=== PATIENT | female | born 1970 | race Caucasian/White ===

== ENCOUNTER 2020-05-08 00:04 | Emergency (ER) | payer OTHER ==
[~2020-05-08] VITALS: Ht 154.9 cm; Wt 120.2 kg
[2020-05-08 00:27] VITALS: BP 141/51
[2020-05-08] MEDS ORDERED: KLONOPIN PO STA (00:34)
[2020-05-08] MEDS ORDERED: KLONOPIN ONE (00:36)
--- NOTE | 2020-05-08 00:37 | ER.PDOC ---
General Chief Complaint: Dyspnea/Respdistress Stated Complaint: CHEST CONGESTION Time seen by MD: 00:36 Source: patient Exam Limitations: no limitations History of Present Illness Initial Comments Chest congestion and difficulty breathing for Months. Severity: moderate Prior Episodes/Possible Cause: occasional episodes, chronic episodes Associated Symptoms: anxiety Allergies: Coded Allergies: Penicillins (Verified Allergy, Unknown, SWELLING, 05/08/20) Past Medical History Medical History: other Surgical History: tubal Family History Significant Family History: no pertinent family hx Social History Alcohol Use: rarely Drug Use: none Review of Systems Constitutional: no symptoms reported Respiratory: no symptoms reported Cardiovascular: no symptoms reported Gastrointestinal: no symptoms reported Genitourinary: no symptoms reported Psychiatric/Neurological: anxiety All Other Systems: Reviewed and Negative Physical Exam General Appearance: No Apparent Distress, Anxious Neck: Non-Tender, Full Range of Motion, Supple, Normal Inspection Respiratory: chest non-tender, lungs clear, normal breath sounds, no respiratory distress, no accessory muscle use Cardiovascular: Normal Peripheral Pulses, Regular Rate, Rhythm, No Edema, No Gallop, No JVD, No Murmur Gastrointestinal: Normal Bowel Sounds, No Organomegaly, No Pulsatile Mass, Non Tender, Soft Extremities: Normal Range of Motion, Non-Tender, Normal Inspection, No Pedal Edema, No Calf Tenderness, Normal Capillary Refill 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 NML as Tested, No Motor/Sensory Deficits, Alert, Normal Mood/Affect, Oriented x 3 Skin: Normal Color, Warm/Dry Lymphatic: No Adenopathy Results/Orders Results/Orders Orders - PAULINE BARBOSA MD Cbc With Auto Diff (05/08/20 00:34) Comprehensive Metabolic Panel (05/08/20 00:34) Creatine Kinase (05/08/20 00:34) Probnp B-Type [employer] M[employer] (05/08/20 00:34) Troponin I (05/08/20 00:34) D-Dimer (05/08/20 00:34) Xr Chest 1v (05/08/20 00:34) Ekg-Routine (05/08/20 00:34) Clonazepam (Klonopin) (05/08/20 00:34) Clonazepam (Klonopin) (05/08/20 00:36) Vital Signs Date Time Temp Pulse Resp B/P (MAP) Pulse Ox O2 Delivery O2 Flow Rate FiO2 05/08/20 00:27 98.0 85 20 05/08/20 00:27 98.0 85 20 141/51 (81) 100 Room Air 05/08/20 00:27 98.0 85 20 100 Administered Medications Medications (Trade) Dose Ordered Sig/Hattie Route PRN Reason Start Time Stop Time Status Last Admin Dose Admin Clonazepam (Klonopin) 0.5 mg STAT STAT PO 05/08/20 00:34 05/08/20 00:36 DC 05/08/20 00:43 0.5 MG Laboratory Tests Test 05/08/20 00:46 White Blood Count 7.2 10^3/uL (4.5-11.0) Red Blood Count 5.19 10^6/uL (4.00-5.20) Hemoglobin 13.2 g/dL (12.0-15.0) Hematocrit 39.2 % (36.0-46.0) Mean Corpuscular Volume 75.5 fL (78-100) L Mean Corpuscular Hemoglobin 25.4 pg (26-34) L Mean Corpuscular Hemoglobin Concent 33.7 g/dL (33-36.5) Red Cell Distribution Width 14.1 % (11.5-14.5) Platelet Count 293 10^3/uL (150-400) Mean Platelet Volume 10.9 fL (7.8-11.0) Neutrophils (%) (Auto) 56.5 % (41.0-85.0) Lymphocytes (%) (Auto) 34.6 % (24.0-44.0) Monocytes (%) (Auto) 7.2 % (5.0-12.0) Neutrophils # (Auto) 4.1 10^3/uL (1.8-7.7) Lymphocytes # (Auto) 2.49 10^3/uL1 (1.0-4.8) Monocytes # (Auto) 0.5 10^3/uL (0.3-0.8) Absolute Immature Granulocyte (auto 0.01 10^3 u/L (0-2) Absolute Eosinophils (auto) 0.1 10^3/uL (0.0-0.2) Immature Granulocytes % 0.10 % (0.00-0.50) Eosinophils % 1.3 % (0.0-5.0) Basophils % 0.3 % (0.0-0.2) H Basophils # 0.0 10^3/uL (0.0-0.1) D-Dimer 0.19 mg/L (0.19-0.49) Sodium Level 140 mmol/L (132-145) Potassium Level 3.5 mmol/L (3.6-5.2) L Chloride Level 103.0 mmol/L (96-109) Carbon Dioxide Level 23.7 mmol/L (20.0-32) Anion Gap 16.8 Blood Urea Nitrogen 10 mg/dL (7-18) Creatinine 0.79 mg/dL (0.59-1.40) Estimated GFR () 94.0 (>/=60) Est GFR (CKD-EPI)(Non-Afr Wallisian) 77.7 (>/=60) BUN/Creatinine Ratio 12.0 Glucose Level 95 mg/dL (70-110) Calcium Level 8.6 mg/dL (8.4-10.5) Total Bilirubin 0.3 mg/dL (0.2-1.0) Aspartate Amino Transferase (AST) 20 U/L (0-35) Alanine Aminotransferase (ALT) 35 U/L (12-78) Alkaline Phosphatase 98 U/L (50-136) Total Creatine Kinase 47 U/L (26-192) Troponin I < 0.02 ng/mL (0.00-0.05) Pro-B-Type Natriuretic Peptide 70 pg/mL (0-125) Total Protein 7.6 g/dL (6.4-8.2) Albumin 3.8 g/dL (3.4-5.0) Globulin 3.8 Albumin/Globulin Ratio 1.000 Progress Progress Patient feeling better, labs are unremarkable. EKG/XRAY/CT/US EKG: NSR, no ST T wave changes EKG Comments: rate 69, normal P axis XRAY: chest (No active disease) ER DEPART Departure Time of Disposition: 01:46 Disposition: 01 HOME, SELF-CARE Impression: Primary Impression: Anxiety state Condition: Improved Referrals: PCP,UNKNOWN (PCP) PRIMARY CARE PROVIDER Additional Instructions: F/U with your PCP in 2-3 days Return to ED if worsening or concerns Duration or Time Spent with Pa: 60 min PAULINE BARBOSA MD May 08, 2020 00:37
[2020-05-08 00:51] LABS: BASOPHIL % 0.3 % (0.0-0.2); EOSINOPHIL # 0.1 10^3/uL (0.0-0.2); EOSINOPHIL % 1.3 % (0.0-5.0); LYMPHOCYTES # 2.49 10^3/uL1 (1.0-4.8); LYMPHOCYTES % 34.6 % (24.0-44.0); MEAN CORP HGB 25.4 pg (26-34); MONOCYTES # 0.5 10^3/uL (0.3-0.8); MONOCYTES % 7.2 % (5.0-12.0); NEUTROPHIL # 4.1 10^3/uL (1.8-7.7); NEUTROPHILS % 56.5 % (41.0-85.0); PLATELET COUNT 293 10^3/uL (150-400); RED CELL DISTRIBUTION WIDTH 14.1 % (11.5-14.5)
--- NOTE | 2020-05-08 01:00 | PCM.EKG ---
[facility] Test Date: 2020-05-08 Test Time: 00:52:42 Pat Name: ROCHELLE ROSAS Department: Room: Gender: F [employer]: CRISTAL : 1970 Requested By: PAULINE BARBOSA Order Number: [id number] Reading MD: Pauline BARBOSA Measurements Intervals [place] Rate: 69 P: 62 ME: 136 QRS: 51 QRSD: 91 T: 25 QT: 398 QTc: 427 Interpretive Statements Sinus rhythm No previous ECG available for comparison Electronically Signed On 05-09-2020 7:27:27 [facility] by Pauline BARBOSA Please click the below link to view image of tracing.
--- NOTE | 2020-05-08 01:12 | DIREP ---
PROCEDURE:CHEST 1 VIEW COMPARISON:None. INDICATIONS:Shortness of breath FINDINGS: LUNGS/PLEURA:No significant pulmonary parenchymal abnormalities. No effusions. VASCULATURE:Normal. Unremarkable pulmonary vasculature. CARDIAC:Normal. No cardiac silhouette abnormality or cardiomegaly. MEDIASTINUM:Normal. No visible mass or adenopathy. BONES:Normal. No fracture or visible bony lesion. OTHER:Negative. CONCLUSION:No acute airspace disease. Dictated by: Logan Dia DO on 05/08/2020 at 01:09 AM
[2020-05-08 01:14] LABS: ALANINE AMINOTRANSFERASE(ML) 35 U/L (12-78); ALKALINE PHOSPHATASE 98 U/L (50-136); ASPARTATE AMINO TRANSFERASE 20 U/L (0-35); CALCIUM 8.6 mg/dL (8.4-10.5); CARBON DIOXIDE 23.7 mmol/L (20.0-32); GLUCOSE 95 mg/dL (70-110)
[2020-05-08 01:30] VITALS: BP 137/91
[2020-05-08] MEDS ORDERED: VENTOLIN IH STA (01:46)
[2020-05-08] MEDS ORDERED: VENTOLIN IH ONE (01:58)
== END 2020-05-08 02:43 | disposition home or self-care (01) ==
LOC: EDBD 00:04 → ER 00:04
DX: F41.1 Generalized anxiety disorder (principal); R06.00 Dyspnea, unspecified; R09.81 Nasal congestion; Z79.899 Other long term (current) drug therapy; Z88.0 Allergy status to penicillin
CPT/HCPCS: 36415; 71045; 80053; 82550; 83880; 84484; 85025; 85379; 93005; 94640; 99285; J7613